=== PATIENT | female | born 1965 | race Caucasian/White ===

== ENCOUNTER → 2022-05-26 10:43 | Outpatient (CLI) | payer OTHER, SELFPAY ==
--- NOTE | 2022-05-26 | DI.NM.S_ITS ---
PROCEDURE: [place] BONE SCAN WHOLE BODY RADIOPHARMACEUTICAL: 20.8 mCi Tc-99m MDP IV. INDICATIONS: BREAST CANCER TECHNIQUE: Delayed whole-body scintigrams were obtained approximately 3-4 hours after intravenous injection of radiotracer. Anterior and posterior views were acquired from vertex to feet. Additional left and right oblique views of the thoracic cage were obtained. COMPARISON: [place], [place], [place] BONE SCAN WHOLE BODY, 08/26/2021, 12:19. FINDINGS: There is abnormal uptake in the left clavicle, similar when compared to 08/26/2021. There is a focal uptake in the anterior aspect of the 5th rib, new since the last exam. Increased uptake in the nasal area is likely secondary to rhinitis or paranasal sinus disease. No lesions are identified in skull, sternum, scapulae, bony pelvis, and visualized shafts of the long bones. There is low level increased uptake in cervical, thoracic and lumbar spine with distribution indistinguishable from degenerative disc and facet disease; early metastasis to spine could be obscured by degenerative changes. There are foci of increased periarticular activity compatible with degenerative/arthritic changes. IMPRESSION: 1. Intense uptake in the left clavicle suspicious for metastasis. Recommend radiographic correlation. 2. New focus of increased activity in the anterior right 5th rib. Differential diagnosis include rib fracture versus metastasis. Recommend radiographic correlation. Dictated by: Yaneth Soliman M.D. on 05/26/2022 at 16:01 Approved by: Yaneth Soliman M.D. on 05/26/2022 at 16:05
== END ==
DX: C50.919 Malignant neoplasm of unspecified site of unspecified female breast (principal); M89.9 Disorder of bone, unspecified
CPT/HCPCS: 78306; A9503

== ENCOUNTER → 2022-07-10 09:38 | Outpatient (CLI) | payer OTHER, SELFPAY ==
--- NOTE | 2022-07-10 | DI.NM.S_ITS ---
PROCEDURE: [place] HIDA WITH CCK PHARMACEUTICAL: 5.5 mCi Tc-99m mebrofenin IV; 1.3 mcg CCK IV. INDICATIONS: abdominal pain/RUQ/cholelithiasis TECHNIQUE: Following intravenous administration of Tc-99m mebrofenin, sequential anterior abdominal images were obtained. To evaluate the contractile response of the gallbladder in response to Cholecystokinin (CCK), sincalide (0.02 ?g/kg) was administered by slow intravenous infusion approximately 60 minutes after the administration of the radiopharmaceutical. Sequential imaging was continued for 30 minutes after the start of CCK infusion. Gallbladder ejection fraction was calculated. COMPARISON: None. FINDINGS: Biliary scan: There is normal tracer uptake and excretion by the liver. There is normal visualization of the intrahepatic ducts, common bile duct, and gallbladder. There is normal tracer transit into the duodenum. CCK stimulation: There is normal contractile response of the gallbladder to CCK infusion. The calculated gallbladder ejection fraction is 91%; normal values are above 35%. It has been shown that any patient abdominal pain after CCK administration is related to the rate of CCK injection, rather than to any underlying gallbladder disease (Clinical Nuclear Medicine 2012; 37: 63-70. Journal of Nuclear Medicine 2014; 55: 1-9). IMPRESSION: 1. Normal filling of gallbladder. No evidence for acute cholecystitis. 2. Normal contractile response of gallbladder to CCK stimulation. Dictated by: Yaneth Soliman M.D. on 07/10/2022 at 13:40 Approved by: Yaneth Soliman M.D. on 07/10/2022 at 13:41
== END ==
PROVIDERS: Referring Provider Nurse Practitioner Family; Visit Provider Nurse Practitioner Family
DX: R10.11 Right upper quadrant pain (principal); K80.20 Calculus of gallbladder without cholecystitis without obstruction
CPT/HCPCS: 78227; A9537; J2805

== ENCOUNTER → 2023-04-11 10:45 | Outpatient (CLI) | payer OTHER, SELFPAY ==
--- NOTE | 2023-04-11 | DI.NM.S_ITS ---
PROCEDURE: [place] BONE SCAN WHOLE BODY RADIOPHARMACEUTICAL: 20.1 mCi Tc-99m MDP IV. INDICATIONS: Malignant neoplasm of unspecified site of unspecif TECHNIQUE: Delayed whole-body scintigrams were obtained approximately 3-4 hours after intravenous injection of radiotracer. Anterior and posterior views were acquired from vertex to feet. COMPARISON: [place], [place], [place] BONE SCAN WHOLE BODY, 05/26/2022, 13:59. FINDINGS: There is decreased, moderate uptake of activity within the left clavicle. Previously seen uptake within the right 5th rib is no longer present. IMPRESSION: 1. Decreased left clavicular metastasis. 2. Resolved right 5th rib uptake. Dictated by: Erlinda Taylor M.D. on 04/11/2023 at 16:09 Transcribed by: LIAM on 04/11/2023 at 16:10 Approved by: Erlinda Taylor M.D. on 04/11/2023 at 16:31
== END ==
PROVIDERS: Referring Provider Internal Medicine Hematology & Oncology; Visit Provider Internal Medicine Hematology & Oncology
DX: C50.919 Malignant neoplasm of unspecified site of unspecified female breast (principal); C78.00 Secondary malignant neoplasm of unspecified lung; C79.51 Secondary malignant neoplasm of bone; C78.7 Secondary malignant neoplasm of liver and intrahepatic bile duct
CPT/HCPCS: 78306; A9503